=== PATIENT | male | born 2000 | race Caucasian/White ===

== ENCOUNTER 2024-06-02 23:35 | Inpatient (IN) | payer SELFPAY ==
[~2024-06-02] VITALS: Ht 177.8 cm; Wt 60.0 kg
[2024-06-03 00:01] LABS: BASOPHILS % (AUTO) 1.4 % (0.0-2.0); EOSINOPHILS % (AUTO) 1.9 % (1.0-6.0); HEMATOCRIT 45.2 % (41-53); HEMOGLOBIN 15.5 g/dL (13.5-17.5); LYMPHOCYTES # (AUTO) 2.1 K/uL (1.0-4.8); LYMPHOCYTES % (AUTO) 17.8 % (22.0-44.0); MEAN CORPUSCULAR HEMOGLOBIN 31.6 pg (26.0-34.0); MEAN CORPUSCULAR HGB CONC 34.4 G/dL (31.0-37.0); MEAN CORPUSCULAR VOLUME 92 fL (80-100); MONOCYTES # (AUTO) 0.8 K/uL (0.1-1.0); MONOCYTES % (AUTO) 6.7 % (2.0-9.0); NEUTROPHILS # (AUTO) 8.5 K/uL (1.8-7.7); NEUTROPHILS % (AUTO) 72.2 % (40.0-70.0); PLATELET COUNT (AUTO) 299 K/uL (150-450); RED BLOOD CELL COUNT(AUTO) 4.91 MIL/uL (4.50-5.90); RED CELL DISTRIBUTION WIDTH 12.7 % (11.5-14.5); WHITE BLOOD COUNT (AUTO) 11.8 K/uL (4.5-11.0)
[2024-06-03 00:10] LABS: SALICYLATE 0.5 mg/dL (2.8-20.0)
[2024-06-03] MEDS: SODIUM CHLORIDE 0.9% 1,000 ML IV ONE ×2 (00:11→03:38)
[2024-06-03 00:12] LABS: ALBUMIN 3.7 g/dL (3.4-5.0); BILIRUBIN,DIRECT 0.2 mg/dL (0.00-0.20); BILIRUBIN,TOTAL 0.7 mg/dL (0.1-1.0); TOTAL PROTEIN, SERUM 6.3 g/dL (6.4-8.2)
[2024-06-03 00:15] LABS: COVID AG,FIA SOURCE NASAL SWAB
[2024-06-03 00:19] LABS: ALCOHOL, BLOOD (SERUM) < 3 mg/dL (0-10)
[2024-06-03 00:30] LABS: ANION GAP 8 mmol/L (8-16); CALCIUM, TOTAL 9.3 mg/dL (8.8-10.5); CARBON DIOXIDE 29 mmol/L (22-29); CHLORIDE 105 mmol/L (98-107); CREATININE 1.05 mg/dL (0.60-1.30); GLOMERULAR FILTR. RATE CALC > 60 mL/min (>60); GLUCOSE,RANDOM 96 mg/dL (70-110); POTASSIUM 4.1 mmol/L (3.5-5.1); SODIUM SERUM 142 mmol/L (136-145); UREA NITROGEN, BLOOD 11 mg/dL (7-18)
[2024-06-03 00:34] LABS: ACETAMINOPHEN < 2 mcg/mL (10-30)
[2024-06-03 01:17] LABS: SARS-COV2 (COVID) ANTIGEN,FIA Negative (Negative)
[2024-06-03] MEDS ORDERED: HALOPERIDOL 5 MG TABLET PO PRN (01:30)
[2024-06-03] MEDS ORDERED: ZOLPIDEM TARTRATE 10 MG TABLET PO PRN (01:30)
[2024-06-03] MEDS ORDERED: LORazepam 2 MG TABLET PO PRN (01:30)
[2024-06-03 04:28] LABS: ALANINE AMINOTRANSFERASE 32 U/L (12-78); ALBUMIN 2.8 g/dL (3.4-5.0); ALKALINE PHOSPHATASE 49 U/L (46-116); ANION GAP 4 mmol/L (8-16); ASPARTATE AMINOTRANSFERASE 32 U/L (15-37); BILIRUBIN,TOTAL 0.3 mg/dL (0.1-1.0); CALCIUM, TOTAL 8.2 mg/dL (8.8-10.5); CARBON DIOXIDE 30 mmol/L (22-29); CHLORIDE 109 mmol/L (98-107); GLOMERULAR FILTR. RATE CALC > 60 mL/min (>60); GLUCOSE,RANDOM 97 mg/dL (70-110); POTASSIUM 3.9 mmol/L (3.5-5.1); SODIUM SERUM 143 mmol/L (136-145); TOTAL PROTEIN, SERUM 5.1 g/dL (6.4-8.2); UREA NITROGEN, BLOOD 13 mg/dL (7-18)
[2024-06-03 09:53] VITALS: O2SAT 99
[2024-06-03 12:16] VITALS: BP 122/50; PULSE 60; RESP 18; TEMP 97.5; O2SAT 100
[2024-06-03] MEDS ORDERED: NICOTINE POLACRILEX 2 MG LOZENGE PO PRN (13:30)
[2024-06-03 20:08] VITALS: BP 127/55; PULSE 68; RESP 18; TEMP 98.6; O2SAT 99
[2024-06-03] MEDS ORDERED: DOCUSATE SODIUM 100 MG CAPSULE PO PRN (21:15)
[2024-06-03] MEDS ORDERED: BENZOCAINE/MENTHOL [CEPACOL] LOZENGE PO PRN (21:15)
[2024-06-03] MEDS ORDERED: ALBUTEROL SULFATE HFA 90 MCG/PUFF 8 GM INHALER IH PRN (21:15)
[2024-06-03] MEDS ORDERED: PETROLATUM,WHITE 28 GM JELLY TP PRN (21:15)
[2024-06-03] MEDS ORDERED: BACITRACIN 28 GM OINTMENT TP PRN (21:15)
[2024-06-03] MEDS ORDERED: OMEPRAZOLE 20 MG CAPSULE PO PRN (21:15)
[2024-06-03] MEDS ORDERED: ACETAMINOPHEN 325 MG TABLET PO PRN (21:15)
[2024-06-03] MEDS ORDERED: MAGNESIUM HYDROXIDE SUSPENSION 30 ML UDCUP PO PRN (21:15)
[2024-06-03] MEDS ORDERED: MAG HYDROX/ALUMINUM HYD/SIMETH ES 30 ML SUSPENSION UDCUP PO PRN (21:15)
[2024-06-03] MEDS ORDERED: ONDANSETRON 4 MG TABLET PO PRN (21:15)
[2024-06-03] MEDS ORDERED: IBUPROFEN 600 MG TABLET PO PRN (21:15)
[2024-06-03] MEDS ORDERED: LOPERAMIDE HCL 2 MG CAPSULE PO PRN (21:15)
[2024-06-03] MEDS ORDERED: CloNIDine HCL 0.1 MG TABLET PO PRN (21:15)
[2024-06-04 08:00] VITALS: BP 119/57; PULSE 75; RESP 18; TEMP 97.8; O2SAT 97
[2024-06-04 20:28] VITALS: TEMP 98.8; O2SAT 97
[2024-06-05 08:19] VITALS: BP 133/74; PULSE 60; RESP 16; TEMP 96.3; O2SAT 98
[2024-06-05] MEDS: DIVALPROEX SODIUM 500 MG DR TABLET PO SCH (09:04)
[2024-06-05] MEDS: RisperiDONE 2 MG TABLET PO SCH (09:04)
[2024-06-05] MEDS: LITHIUM CARBONATE 300 MG CAPSULE PO SCH (09:04)
== END 2024-06-05 16:25 | disposition home or self-care (01) | DRG 881 ==
LOC: EMS 23:36 → B2S 06-03 08:37
PROVIDERS: ADMIT Psychiatry & Neurology Psychiatry; ATTEND Psychiatry & Neurology Psychiatry
DX: F32.9 Major depressive disorder, single episode, unspecified (principal); R45.851 Suicidal ideations; F41.9 Anxiety disorder, unspecified; F19.10 Other psychoactive substance abuse, uncomplicated; G47.00 Insomnia, unspecified; Z20.822 Contact with and (suspected) exposure to COVID-19; T50.902A Poisoning by unspecified drugs, medicaments and biological substances, intentional self-harm, initial encounter; Y92.89 Other specified places as the place of occurrence of the external cause
CPT/HCPCS: 80048; 80053; 80076; 85025; 93005; 99285; G0480; G0481; J7030